=== PATIENT | female | born 1990 | race Caucasian/White ===

== ENCOUNTER 2019-07-29 11:41 | Inpatient (IN) | payer MEDICAID ==
[~2019-07-29] VITALS: Ht 154.9 cm; Wt 54.9 kg
[2019-07-29] MEDS ORDERED: mag hydrox/Alum hydrox/simeth 30ml oral suspension PO PRN (14:35)
[2019-07-29] MEDS ORDERED: loperamide 2mg capsule PO PRN (14:35)
[2019-07-29] MEDS ORDERED: acetaminophen 325mg tablet PO PRN (14:35)
[2019-07-29] MEDS ORDERED: ZIPR20CA2 PO (14:45)
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
[2019-07-29] MEDS: ziprasidone 20mg capsule PO SCH (20:13)
[2019-07-29] MEDS: LORazepam 1 MG tablet PO PRN (20:13)
[2019-07-29 20:29] VITALS: BP 114/74
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
[2019-07-30 06:58] LABS: CHOL/HDL RATIO 2.7 (0.00-4.99); CHOLESTEROL 167 MG/DL (0-200); HDL CHOLESTEROL 63 MG/DL (35-60); LDL CHOLESTEROL 93 MG/DL (50-100); TRIGLYCERIDES 59 MG/DL (20-135)
[2019-07-30 06:59] LABS: HEMOGLOBIN A1C 5.3 % (4.5-6.2)
[2019-07-30 07:00] VITALS: BP 93/50
[2019-07-30] MEDS: ziprasidone 20mg capsule PO SCH (08:19)
[2019-07-30] MEDS: LORazepam 1 MG tablet PO PRN (10:52)
[2019-07-30] MEDS: hydrOXYzine 25 MG tablet PO PRN (10:52)
[2019-07-30] MEDS: nicotine 21mg patch - 24 hr TD SCH (12:35)
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
[2019-07-30 20:59] VITALS: BP 133/91
[2019-07-30] MEDS ORDERED: ziprasidone 20mg capsule PO SCH (21:00)
[2019-07-30] MEDS: zolpidem 5mg tablet PO SCH (21:20)
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
[2019-07-31 08:00] VITALS: BP 98/55
[2019-07-31] MEDS ORDERED: ziprasidone 20mg capsule PO SCH (08:00)
[2019-07-31 08:17] LABS: BASOPHILS # (AUTO) 0.1 X10'3 (0-0.2); BASOPHILS % (AUTO) 0.7 % (0-1); EOSINOPHILS # (AUTO) 0.1 X10'3 (0-0.9); EOSINOPHILS % (AUTO) 1.3 % (0-6); HEMOGLOBIN 14.2 g/dl (12.0-16.0); LYMPHOCYTES # (AUTO) 2.1 X10'3 (1.1-4.8); LYMPHOCYTES % (AUTO) 29.2 % (21-51); MEAN CORPUSCULAR HEMOGLOBIN 32.3 PG (27.0-31.0); MEAN CORPUSCULAR HGB CONC 33.8 g/dL (33.0-36.5); MEAN CORPUSCULAR VOLUME 95.7 FL (78-98); MEAN PLATELET VOLUME 7.8 FL (7.4-10.4); MONOCYTES # (AUTO) 0.7 X10'3 (0-0.9); MONOCYTES % (AUTO) 9.9 % (2-12); NEUTROPHILS # (AUTO) 4.3 X10'3 (1.8-7.7); NEUTROPHILS % (AUTO) 58.9 % (42-75); PLATELET COUNT 279 X10'3 (140-440); RED BLOOD COUNT 4.39 X10'6 (4.20-5.60); RED CELL DISTRIBUTION WIDTH 14.1 % (11.5-14.5); WHITE BLOOD COUNT 7.3 X10'3 (4.5-11.0)
[2019-07-31 08:29] LABS: CHLORIDE 106 MMOL/L (99-107); GLUCOSE 87 MG/DL (70-104); POTASSIUM 4.3 MMOL/L (3.5-5.1); SODIUM 138 MMOL/L (135-145); TOTAL CARBON DIOXIDE 26.2 MMOL/L (24-32)
[2019-07-31 08:30] LABS: ALANINE AMINOTRANSFERASE 17 U/L (12-78); ALKALINE PHOSPHATASE 61 IU/L (46-116); ANION GAP 6 (8-16); ASPARTATE AMINO TRANSFERASE 14 U/L (10-37); BILIRUBIN,TOTAL 0.1 MG/DL (0.1-1.0); BLOOD UREA NITROGEN 20 MG/DL (7-18); BUN/CREATININE RATIO 27.8 (6.6-38.0); CALCIUM 8.3 MG/DL (8.5-10.1); CREATININE 0.72 MG/DL (0.40-0.90); TOTAL PROTEIN 6.1 G/DL (6.4-8.2); eGFR > 90 ML/MIN
[2019-07-31] MEDS: nicotine 21mg patch - 24 hr TD SCH (09:04)
[2019-07-31 09:33] LABS: HIV ANTIBODY 1&2 RAPID NON-REACTIVE (Neg)
[2019-07-31] MEDS: NICOTINE POLACRILEX 2 MG LOZENGE BC PRN ×2 (12:05→22:30)
--- NOTE | 2019-07-31 15:16 | NUR ---
Met with Annia to complete Psychosocial Assessment. She was cooperative and her affect was inappropriately bright. She joked throughout the interview. She reported she wants to go to a drug rehab in [place], however, does not know the name of it nor does she have a way to pay for it. Annia continues to be unable to formulate a viable plan for food, clothing, or retirement. She wants to be released and "enjoy nature". [employer]man will attempt to contact Annia's sister, Catarina (ph# [phone]). SHAYLEE Noel Addendum: 07/31/19 at 1520 by Keisha SCHAEFER Amended: Links added.
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
[2019-07-31 19:42] VITALS: BP 97/54
[2019-07-31] MEDS: ziprasidone 20mg capsule PO SCH (21:50)
[2019-07-31] MEDS: oxcarbazepine 150mg tablet PO SCH (21:50)
[2019-07-31] MEDS: zolpidem 5mg tablet PO SCH (21:50)
[2019-07-31] MEDS: aripiprazole 5mg tablet PO SCH (21:50)
[2019-07-31] MEDS: magnesium hydroxide 30ml (MOM) UD suspension PO PRN (21:58)
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
[2019-08-01] MEDS: LORazepam 1 MG tablet PO PRN (07:34)
[2019-08-01 07:59] VITALS: BP 106/68
[2019-08-01 08:10] LABS: HBSAG SCREEN Negative (Negative); HEP A AB, IGM Negative (Negative); HEP B CORE AB, IGM Negative (Negative); HEPATITIS C ANTIBODY <0.1 s/co ratio (0.0-0.9)
[2019-08-01] MEDS: nicotine 21mg patch - 24 hr TD SCH (08:49)
[2019-08-01] MEDS: ziprasidone 20mg capsule PO SCH ×2 (08:49→20:52)
[2019-08-01] MEDS: oxcarbazepine 150mg tablet PO SCH ×2 (08:49→20:52)
--- NOTE | 2019-08-01 10:01 | NUR ---
Initial: Pt admit w/ psychosis PO 100% regular diet meeting needs. LBM 08/01. No nutrition concerns at this time. Will continue to monitor. Rec: 1. continue regular diet 2. routine bowel care Addendum: 08/01/19 at [address] Amended: Links added.
--- NOTE | 2019-08-01 15:02 | NUR ---
DISCHARGE PLANNING Called [facility] ([facility]) ph# to inquire about Ct's involvement. It was reported that their last contact with Ct was in 12/2018. At that time she was referred to tele-care for out reach and they were unable to locate her, she has since been closed to out reach. They confirmed that address that Ct gave show card writer is a homeless longterm. SHAYLEE Noel
[2019-08-01] MEDS: NICOTINE POLACRILEX 2 MG LOZENGE BC PRN (16:26)
[2019-08-01] MEDS: acetaminophen 325mg tablet PO PRN (16:27)
[2019-08-01] MEDS: hydrOXYzine 25 MG tablet PO PRN (16:27)
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
[2019-08-01 19:57] VITALS: BP 118/80
[2019-08-01] MEDS: aripiprazole 5mg tablet PO SCH (20:52)
[2019-08-01] MEDS: zolpidem 5mg tablet PO SCH (20:52)
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
[2019-08-02] MEDS: ziprasidone 20mg capsule PO SCH ×2 (07:53→19:24)
[2019-08-02] MEDS: oxcarbazepine 150mg tablet PO SCH ×2 (07:53→19:23)
[2019-08-02] MEDS: nicotine 21mg patch - 24 hr TD SCH (07:54)
[2019-08-02 08:00] VITALS: BP 107/66
[2019-08-02] MEDS ORDERED: aripiprazole 400mg suspension ER syringe IM SCH (15:00)
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
[2019-08-02 19:00] VITALS: BP 88/51
[2019-08-02] MEDS: hydrOXYzine 25 MG tablet PO PRN (19:23)
[2019-08-02] MEDS: aripiprazole 5mg tablet PO SCH (19:23)
[2019-08-02] MEDS: zolpidem 5mg tablet PO SCH (19:23)
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
[2019-08-03 08:00] VITALS: BP 109/75
[2019-08-03] MEDS: ziprasidone 20mg capsule PO SCH ×2 (08:29→20:52)
[2019-08-03] MEDS: oxcarbazepine 150mg tablet PO SCH ×2 (08:30→21:08)
[2019-08-03] MEDS: nicotine 21mg patch - 24 hr TD SCH ×2 (08:33→17:52)
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
[2019-08-03 20:00] VITALS: BP 109/77
[2019-08-03] MEDS: zolpidem 5mg tablet PO SCH (20:52)
[2019-08-03] MEDS: aripiprazole 5mg tablet PO SCH (20:52)
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
[2019-08-04 07:30] VITALS: BP 97/60
[2019-08-04] MEDS: oxcarbazepine 150mg tablet PO SCH ×2 (08:13→20:04)
[2019-08-04] MEDS: ziprasidone 20mg capsule PO SCH (08:14)
[2019-08-04] MEDS: nicotine 21mg patch - 24 hr TD SCH (10:03)
[2019-08-04] MEDS: magnesium hydroxide 30ml (MOM) UD suspension PO PRN (10:07)
[2019-08-04] MEDS: hydrOXYzine 25 MG tablet PO PRN (13:28)
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
[2019-08-04] MEDS: acetaminophen 325mg tablet PO PRN (19:20)
[2019-08-04] MEDS ORDERED: haloperidol 5mg tablet PO ONE (19:25)
[2019-08-04 19:54] VITALS: BP 119/71
[2019-08-04] MEDS: aripiprazole 5mg tablet PO SCH (20:04)
[2019-08-04] MEDS: zolpidem 5mg tablet PO SCH (20:04)
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
[2019-08-05 07:57] VITALS: BP 100/60
[2019-08-05] MEDS: oxcarbazepine 150mg tablet PO SCH ×2 (08:17→20:10)
[2019-08-05] MEDS: LORazepam 1 MG tablet PO PRN (10:24)
[2019-08-05] MEDS: NICOTINE POLACRILEX 2 MG LOZENGE BC PRN ×2 (10:53→17:02)
--- NOTE | 2019-08-05 16:14 | NUR ---
Pt was released from 5250 Hold following Hearing, SS met w/pt and engaged her in dcp activities to identify a d/c destination for her. Per discussion, pt would like to rt to [facility], the [facility]. [facility], spoke w/Daiana Sue to coordinate aftercare & transportation back to [facility] per t/c this SS was instructed to contact [facility] Dev Ops Engineer department to coordinate pt's transportation & aftercare plan. SS had t/c w/[facility]- Joan Andrew @ [phone], left vm requesting a rt p/c to coordinate aftercare plan & transportation back to [facility]. Pt informed that dcp will be finalize tomorrow morning /[facility]. Plan: SS to f/u [facility] in the AM to finalize dcp. Addendum: 08/05/19 at 1648 by Elli Narvaez Amended: Links added.
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
[2019-08-05] MEDS: lurasidone 20mg tablet PO SCH (17:52)
[2019-08-05] MEDS ORDERED: lurasidone 20mg tablet PO SCH (18:00)
[2019-08-05] MEDS: aripiprazole 5mg tablet PO SCH (20:10)
[2019-08-05] MEDS: zolpidem 5mg tablet PO SCH (20:10)
[2019-08-05 20:24] VITALS: BP 115/76
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
[2019-08-06 07:30] VITALS: BP 92/50
[2019-08-06] MEDS: oxcarbazepine 150mg tablet PO SCH ×2 (08:05→20:30)
[2019-08-06] MEDS: nicotine 21mg patch - 24 hr TD SCH (08:09)
--- NOTE | 2019-08-06 08:41 | NUR ---
DISCHARGE PLANNING Called Raven with [facility] (ph# [phone]) to arrange for transport. They need 24 hour notice given the distance. She reported a rental car ferry driver will pear picker [address] tomorrow around noon. Nursing Techn will call tomorrow AM to confirm Ct's discharge and ETA of rental car ferry driver. SHAYLEE Noel
[2019-08-06] MEDS: LORazepam 1 MG tablet PO PRN (08:58)
[2019-08-06] MEDS: NICOTINE POLACRILEX 2 MG LOZENGE BC PRN ×2 (08:58→18:59)
[2019-08-06] MEDS: hydrOXYzine 25 MG tablet PO PRN ×2 (09:29→18:59)
[2019-08-06] MEDS ORDERED: FLU VACC QS2019-20 36MOS UP/PF 60 MCG/0.5 ML SYRINGE IMVAC ONE (10:00)
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
[2019-08-06] MEDS: lurasidone 20mg tablet PO SCH (18:26)
[2019-08-06] MEDS ORDERED: hydrOXYzine 25 MG tablet PO PRN (19:05)
[2019-08-06] MEDS ORDERED: NICO-631 TD (19:37)
[2019-08-06] MEDS ORDERED: ARIP400S3 IM (19:37)
[2019-08-06] MEDS ORDERED: ARIP15TA8 PO (19:37)
[2019-08-06] MEDS ORDERED: NICO-668 BC (19:37)
[2019-08-06] MEDS ORDERED: HYDR50TA65 PO (19:37)
[2019-08-06] MEDS ORDERED: LURA80TA3 PO (19:37)
[2019-08-06] MEDS ORDERED: OXCA300T16 PO (19:37)
[2019-08-06 20:20] VITALS: BP 96/76
[2019-08-06] MEDS: zolpidem 5mg tablet PO SCH (20:30)
[2019-08-06] MEDS: aripiprazole 5mg tablet PO SCH (20:30)
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
[2019-08-07 07:41] VITALS: BP 96/60
[2019-08-07] MEDS: oxcarbazepine 150mg tablet PO SCH (07:46)
[2019-08-07] MEDS: nicotine 21mg patch - 24 hr TD SCH (07:47)
--- NOTE | 2019-08-07 08:55 | NUR ---
Discharge Note: Pt. warehouse picker by [facility] cancelled due to weather concerns. Pt. requested discharge without warehouse picker. Pt. informed RN that she would take a bus to [place] with the $40 she came in with, when questioned about having enough money for bus ride pt. said that she would perla-handle for more if she needed to. When pt. informed that this was a possibly dangerous option pt. insisted on being discharged and said, "I will figure it out, I just need to go". Pt. denies SI/HI, A/V Hallucinations. Pt. discharged with all belongings and adequate winter clothing. Pt. instructed on home medications and f/u plan and pt. verbalized understanding. Pt. given scripts and reports she will fill them when she arrives in [place]. Pt. is A&Ox4. Pt. is in no apparent psychological or emotional distress. Pt. discharged with nicotine replacement.
== END 2019-08-07 08:55 | disposition home or self-care (01) | DRG 750 ==
LOC: ADULT MH 11:41
PROVIDERS: ADMIT Psychiatry & Neurology Psychiatry; ATTEND Psychiatry & Neurology Psychiatry
DX: F20.0 Paranoid schizophrenia (principal); G93.41 Metabolic encephalopathy; Z59.0 Homelessness; F29 Unspecified psychosis not due to a substance or known physiological condition; G89.29 Other chronic pain; M54.2 Cervicalgia; F15.10 Other stimulant abuse, uncomplicated; F42.9 Obsessive-compulsive disorder, unspecified; F32.9 Major depressive disorder, single episode, unspecified; R45.851 Suicidal ideations; F17.210 Nicotine dependence, cigarettes, uncomplicated; Z23 Encounter for immunization; Z79.899 Other long term (current) drug therapy
CPT/HCPCS: 36415; 80053; 80061; 80074; 83036; 84443; 85025; 86703; 87081; 99285; Q2037; Z7610